=== PATIENT | female | born 1990 | race Asian ===

== ENCOUNTER 2016-05-21 13:39 | Emergency (ER) | payer OTHER ==
--- NOTE | 2016-05-21 16:39 | ED ---
Influenza-Like Illness - HPI Summary HPI Summary: Patient presents with one week of cough, congestion, intermittent headache, runny nose and intermittent fever. She developed body aches yesterday. She denies neck, abdominal or chest pain. No SOB. She has a sore throat and pressure in her ears. - History of Current Complaint Chief Complaint: EDUpperRespComplaint Time Seen by Provider: 05/21/16 16:16 Hx Obtained From: Patient, Family/Motion Picture Set Grip Onset/Duration: Gradual Onset Severity: Moderate Associated Signs & Symptoms: Myalgia, Cough, Sore Throat, Nasal Congestion, Headache Related Hx: Possible Flu/Infectious Exposure PMH/Surg Hx/FS Hx/Imm Hx Respiratory History: Reports: Hx Seasonal Allergies - Immunization History Date of Tetanus Vaccine: up[ to date per pt Infectious Disease History: No Infectious Disease History: Denies: Traveled Outside the [place] in Last 30 Days - Social History Occupation: Employed Full-time Lives: With Family Alcohol Use: None Substance Use Type: Reports: None Smoking Status (MU): Never Smoked Tobacco Review of Systems Positive: Fever, Fatigue. Negative: Chills Positive: Sore Throat, Nasal Discharge. Negative: Ear Ache Negative: Chest Pain Positive: Cough Negative: Abdominal Pain, Vomiting, Diarrhea, Nausea Positive: Myalgia. Negative: Edema Negative: Bruising Positive: Headache - intermittent All Other Systems Reviewed And Are Negative: Yes Physical Exam Triage Information Reviewed: Yes Vital Signs On Initial Exam: Initial Vitals Temp Pulse Resp BP Pulse Ox 101.9 F 109 16 110/72 99 05/21/16 13:50 05/21/16 13:50 05/21/16 13:50 05/21/16 13:50 05/21/16 13:50 Vital Signs Reviewed: Yes Appearance: Positive: Well-Appearing, No Pain Distress, Thin Skin: Positive: Warm, Skin Color Reflects Adequate Perfusion, Dry, Soft Head/Face: Positive: Normal Head/Face Inspection Eyes: Positive: EOMI, JAY, Conjunctiva Clear ENT: Positive: Hearing grossly normal, Pharyngeal erythema, Nasal congestion, TMs normal Neck: Positive: Supple, Nontender, No Lymphadenopathy Respiratory/Lung Sounds: Positive: Clear to Auscultation, Breath Sounds Present. Negative: Rales, Rhonchi, Wheezes Cardiovascular: Positive: RRR Abdomen Description: Positive: Nontender, Soft Bowel Sounds: Positive: Present Musculoskeletal: Negative: Edema Left, Edema Right Neurological: Positive: Sensory/Motor Intact, Alert, Oriented to Person Place, Time, NV Bundle Intact Distally Psychiatric: Positive: Affect/Mood Appropriate AVPU Assessment: Alert Diagnostics - Vital Signs Vital Signs Temp Pulse Resp BP Pulse Ox 05/21/16 15:08 100.8 F 115 16 106/70 100 05/21/16 13:50 101.9 F 109 16 110/72 99 - Laboratory Lab Results: Rapid Strep test is negative Influenza: negative Lab Statement: Any lab studies that have been ordered have been reviewed, and results considered in the medical decision making process. - Radiology No standard instances Xray Interpretation: No Acute Changes Radiology Interpretation Completed By: Radiologist Flu Symptom Course/Dx - Diagnoses Differential Diagnosis/HQI/PQRI: Positive: Bronchitis, Broncholiolitis, Influenza, Pneumonia, Upper Respiratory Infection Provider Diagnoses: Viral upper respiratory illness Discharge - Discharge Plan Condition: Stable Disposition: HOME Patient Education Materials: Cold Symptoms (ED) Forms: *School Release Referrals: Leroy Goetz MD [Primary Care Provider] - Additional Instructions: Please get rest, drink extra fluids, use ibuprofen 400mg every 4 hours and/or Tylenol to control your fever. Follow-up with your primary care provider in 2-3 days for re-evaluation if your symptoms persist. Return to the emergency department if your symptoms worsen.
--- NOTE | 2016-05-21 18:15 | RAD ---
HISTORY: Chest congestion, fever COMPARISONS: August 25, 2014 VIEWS: 2: Frontal dual-energy and lateral views of the chest. FINDINGS: CARDIOMEDIASTINAL SILHOUETTE: The cardiomediastinal silhouette is normal. DENTON: The denton are normal. PLEURA: The costophrenic angles are sharp. No pleural abnormalities are noted. LUNG PARENCHYMA: The lungs are clear. ABDOMEN: The upper abdomen is clear. There is no subphrenic gas. BONES AND SOFT TISSUES: No bone or soft tissue abnormalities are noted. OTHER: None. IMPRESSION: NO ACTIVE CARDIOPULMONARY DISEASE.
[2016-05-21 19:13] VITALS: BP 107/63
== END 2016-05-21 19:10 | disposition home or self-care (01) ==
LOC: ED 13:39
DX: J06.9 Acute upper respiratory infection, unspecified (principal)
CPT/HCPCS: 71020; 87502; 87651; 99282